=== PATIENT | male | born 1990 | race Caucasian/White ===

== ENCOUNTER 2017-01-11 17:50 | Emergency (ER) | payer SELFPAY ==
[2017-01-11 18:00] VITALS: BP 131/75
[2017-01-11] MEDS ORDERED: Acetaminophen/oxyCODONE 325-5 MG Tab PO ONE (18:16)
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
--- NOTE | 2017-01-12 11:43 | CT ---
CT lumbar spine Technique: Multiple axial sections were obtained from the top of T11 inferiorly through the mid S2 segment. Reconstructed sagittal and coronal images were reviewed. Findings: Vertebral body heights and disc spaces are maintained. Small air-filled cyst is noted within the superior endplate of L4 which is incidental. Vertebral bodies and posterior arches are intact with no fracture being seen. Diffuse circumferential disc bulge is noted at L4-L5 with slight asymmetric disc protrusion posteriorly to the right of midline slightly indenting the anterior thecal sac. Mild circumferential disc bulge noted at L3-L4. Other discs are maintained. Impression: 1. Circumferential disc bulging at L3-L4 and L4-L5. 2. No acute bony abnormality is seen. Agree with preliminary report issued by [facility] (preliminary report dictated on 01/11/17, 9:03 PM Central Time) Diagnostic code #2
--- NOTE | 2017-01-12 11:45 | CR ---
Lumbar spine: AP, lateral and coned-down lateral views centered to the lumbosacral junction were obtained. Vertebral body heights and disc spaces are maintained. Pedicles as well as transverse and spinous processes are intact. No subluxation or fracture is seen. Impression: 1. No abnormality is seen on three-view lumbar spine study. Diagnostic code #1
--- NOTE | 2017-01-12 11:45 | CT ---
CT pelvis Technique: Multiple axial sections were obtained through the pelvis. Reconstructed coronal and sagittal images were obtained. Findings: Partial transitional segment seen on the right side with enlarged transverse process of L5 showing pseudoarticulation with the sacrum which is incidental. Sacroiliac joints are unremarkable. Joint spaces within both hips are maintained. No acute fracture is appreciated. Impression: 1. No acute bony abnormality is appreciated on CT study of the pelvis. Incidental transitional segment is noted. Agree with preliminary report issued by [facility] (preliminary report dictated on 01/11/17, 8:58 PM Central Time Diagnostic code #2
--- NOTE | 2017-01-12 11:45 | CR ---
Pelvis: AP view of the pelvis was obtained. Comparison: No previous study. Partial transitional segment seen at the lumbosacral junction with enlargement of the right transverse process of L5 showing pseudoarticulation with the sacrum. Sacroiliac joints are unremarkable. Joint spaces within both hips are maintained. No acute fracture is seen. Impression: 1. Incidental partial transitional segment. 2. Nothing acute is identified on AP pelvis study. Diagnostic code #2
== END 2017-01-11 20:49 | disposition home or self-care (01) ==
LOC: JD.ED 17:50
DX: S30.0XXA Contusion of lower back and pelvis, initial encounter (principal); W18.2XXA Fall in (into) shower or empty bathtub, initial encounter; M51.26 Other intervertebral disc displacement, lumbar region
CPT/HCPCS: 72100; 72131; 72170; 72192; 99284; A9270